=== PATIENT | female | born 1955 | race African-American/Black ===

== ENCOUNTER 2017-12-23 11:19 | Emergency (ER) | payer MEDICARE | END 2017-12-23 12:05 | disposition home or self-care (01) | LOC: ER 11:19 | DX: B86 Scabies (principal) | CPT/HCPCS: 99282 ==

== ENCOUNTER → 2020-05-10 | Outpatient (CLI) | payer MEDICARE ==
[2017-12-23 11:50] VITALS: BP 127/77
[~2020-05-10] MED LIST: PERM60CR12 TP
--- NOTE | 2020-05-10 16:47 | KCIC ---
Bilateral digital screening mammograms: Reason for examination: Routine screening. Comparison is made to previous study dated 12/01/2014. Interpretation was made with the benefit of CAD. The skin and nipples show no abnormalities. No abnormal axillary lymph nodes are seen. The breast parenchyma shows scattered fibroglandular density. (Breast density: Category B.) There are small nodules consistent with intramammary lymph nodes in the right breast. There is a small nodule seen centrally on the cc view of the left breast which probably represents a skin lesion seen inferiorly on the oblique view. There are no new dominant masses, suspicious calcifications or architectural distortions. Impression: No evidence of malignancy. Recommend routine screening. BI-RADS Category 2: Benign. "Our facility is accredited by the [employer] Mammography [employer]." This patient's information has been entered into a reminder system for the patient to be notified with the results of her examination and a target date for the next mammogram. Electronically signed by: Beverley Cardozo MD (05/10/2020 4:44 PM) [id number]
== END | disposition home or self-care (01) ==
LOC: KCIC MAMMO 14:49
PROVIDERS: ATTEND Registered Nurse
DX: Z12.31 Encounter for screening mammogram for malignant neoplasm of breast (principal)
CPT/HCPCS: 77067

== ENCOUNTER → 2021-10-16 | Outpatient (CLI) | payer OTHER ==
[2017-12-23 11:50] VITALS: BP 127/77
--- NOTE | 2021-10-16 18:07 | RAD ---
EXAM: XR LUMBAR SPINE 2-3V 10/16/2021 10:17 AM CLINICAL INDICATION: Low back pain radiating down left leg COMPARISON: None TECHNIQUE: AP and lateral view of the lumbar spine FINDINGS: 5 nonrib-bearing lumbar vertebral bodies. No acute fracture. There is minimal anterolisthe sis of L4 on L5. Disc spaces are maintained. Minimal anterior osteophyte formation. There is facet ar throsis at L3-L4, L4-L5, and L5-S1. IMPRESSION: 1. Lower lumbar facet arthrosis 2. Minimal degenerative disc disease. Electronically signed by: Zeny Carlin MD (10/16/2021 6:05 PM) [id number]
--- NOTE | 2021-10-16 18:08 | RAD ---
EXAM: XR CHEST 2V 10/16/2021 10:17 AM CLINICAL INDICATION: Shortness of breath, Covid COMPARISON: None available TECHNIQUE: PA and lateral views of the chest FINDINGS: The heart and mediastinum are normal. Lungs are well-expanded and clear. No consolidatio n, pleural effusion, or pneumothorax. Pulmonary vascularity is normal. Probable surgical changes of rotator cuff repairs and/or biceps tenodesis. IMPRESSION: No acute cardiopulmonary abnormality. Electronically signed by: Zeny Carlin MD (10/16/2021 6:06 PM) [id number]
== END ==
LOC: RAD 10:04
PROVIDERS: ATTEND Anesthesiology Pain Medicine
DX: Z02.71 Encounter for disability determination (principal); R06.02 Shortness of breath; M47.817 Spondylosis without myelopathy or radiculopathy, lumbosacral region; Z86.16 Personal history of COVID-19
CPT/HCPCS: 71046; 72100